=== PATIENT | female | born 2000 | race Caucasian/White ===

== ENCOUNTER 2021-04-21 10:50 | Inpatient (IN) ==
[2021-04-21] MEDS ORDERED: ACETAMINOPHEN 325 MG TABLET PO ONE (11:07)
[2021-04-21] MEDS ORDERED: 0.9 % SODIUM CHLORIDE 1,000 ML IV ONE ×3 (11:07→11:50)
--- NOTE | 2021-04-21 12:06 | Emergency Department Note ---
HPI General Chief complaint: Fever Stated complaint: fever, N/V, kidney infection Time Seen by Provider: 04/21/21 10:55 Source: patient Mode of arrival: ambulatory Limitations: no limitations History of Present Illness HPI Narrative: 20-year-old female with no past medical history presenting with left flank pain and fever. She was seen at urgent care and then in the ED yesterday with similar symptoms. She was diagnosed with pyelonephritis via CT and UA. She was given a total of 5 L of normal saline and 1 dose of Rocephin with improvement in her heart rate. She was discharged home on Keflex. She took 1 dose of Keflex this morning but still felt ill so came back to the ED. She endorses continued left flank pain, dysuria, and fever to 102F. No headache, neck pain, chest pain, shortness of breath, vomiting, or diarrhea. Denies any vaginal bleeding or discharge. She has an IUD in place. Related Data Home Medications Medication Instructions Recorded Confirmed acetaminophen 325 mg capsule 325 mg PO ONCE PRN 04/20/21 04/20/21 (Tylenol) Previous Rx's Medication Instructions Recorded cephalexin 500 mg capsule 500 mg PO QID 14 Days #56 cap 04/20/21 ondansetron 4 mg disintegrating 4 mg PO Q8H PRN #10 tab 04/20/21 tablet Allergies Allergy/AdvReac Type Severity Reaction Status Date / Time No Known Drug Allergies Allergy Verified 04/21/21 10:54 Review of Systems ROS ROS Narrative: Narrative: Constitutional: Reports fever; Denies chills Eyes: Denies vision change ENT ED: Denies ear pain or throat pain Cardiovascular: Denies chest pain or palpitations Respiratory: Denies shortness of breath or cough Gastrointestinal: Reports abdominal pain; Denies nausea or vomiting Genitourinary: Reports dysuria and frequency; Denies hematuria or discharge Musculoskeletal: Reports back pain; Denies joint swelling or joint pain Integumentary: Denies rash or lesions Neurological: Denies headache or weakness Psychiatric: Denies anxiety or depression Endocrine: Denies fatigue or heat or cold intolerance Hematological/Lymphatic: Denies easy bleeding or easy bruising PFS Narrative Patient History Narrative: Narrative: Medical/Surgical/Family History All Active Problems (Updated 04/21/21 @ 13:00 by Chemo Holland MD) Pyelonephritis (Acute) Social History Smoking Status: Never smoker Exam Narrative Narrative: Narrative: General Limitations: no limitations General appearance: Present alert and in no apparent distress Head Head: Present atraumatic and normocephalic Eye Eye: Present normal appearance, PERRL and EOMI; Absent scleral icterus or conjunctival injection ENT ENT: Present normal oropharynx and mucous membranes moist Neck Neck: Present full ROM and trachea midline; Absent lymphadenopathy or thyromegaly Chest Chest: Present symmetric chest wall rise Respiratory Respiratory: Present normal lung sounds bilaterally; Absent respiratory distress, wheezes, stridor, accessory muscle use or prolonged expiratory phase Cardiovascular Cardiovascular: Present normal rhythm and tachycardia; Absent systolic murmur or diastolic murmur Adbominal Abdominal: Present soft; Absent distention, tenderness, guarding, rebound, rigidity, organomegaly or mass Extremities Extremities: Absent pedal edema, pretibial edema or calf tenderness Back Back: Present CVA tenderness (L); Absent CVA tenderness (R) or spinous process tenderness Neurological Neurological: Present alert and oriented X3 Psychiatric Psychiatric: Present normal affect and normal mood Skin Skin: Present warm (WNL) and dry Course Reevaluation(s) Reevaluation #1: Patient continues to be tachycardic despite 1.5 L of normal saline. Will continue to monitor. Time: 12:40 Consultations Consultation #1: Dr. Carolina, hospitalist Time: 12:43 Vital Signs Vital signs: Vital Signs Temperature 102.4 F H 04/21/21 10:51 Pulse Rate 132 H 04/21/21 10:51 Respiratory Rate 22 04/21/21 10:51 Blood Pressure 103/64 04/21/21 10:51 Pulse Oximetry (%) 96 04/21/21 10:51 Temperature 101 F H 04/21/21 11:20 Pulse Rate 115 H 04/21/21 12:34 Respiratory Rate 16 04/21/21 12:30 Blood Pressure 116/71 04/21/21 12:32 Pulse Oximetry (%) 99 04/21/21 12:34 [facility] MDM Narrative Medical decision making narrative: 20-year-old female presenting with left flank pain and pyelonephritis. She has failed outpatient treatment and continues to be tachycardic. 2 L of normal saline ordered today. Her white blood cell count has increased to 32 from 23 yesterday. Lactate is normal. Given her symptoms, findings, and vital signs will admit for further treatment and management. 1 g Rocephin given in the ED. Patient endorsed to Dr. Carolina for admission. Lab Data Lab results reviewed: Yes I reviewed the patient's lab results. Result diagrams: 04/21/21 11:16 04/21/21 11:16 Labs: Lab Results 04/21/21 04/21/21 04/21/21 Range/Units 11:16 11:16 11:16 WBC 32.4 H* (4.5-11.0) K/mcL RBC 3.76 (3.59-5.38) M/mcL Hgb 11.9 (11.2-15.7) g/dL Hct 35.0 (34.1-44.9) % MCV 93.1 (80.0-100.0) fL MCH 31.6 (26.0-34.0) pg MCHC 34.0 (31.0-36.0) g/dL RDW 11.9 (11.5-14.5) % Plt Count 240 (140-440) K/mcL MPV 10.2 (7.4-10.4) fL Neut % (Auto) 87.0 H (38.0-78.0) % Lymph % (Auto) 3.7 L (15.5-49.0) % [place] % (Auto) 9.0 (1.0-12.0) % Eos % (Auto) 0.1 (0.0-7.0) % Baso % (Auto) 0.2 (0.0-2.0) % Lymph # (Auto) 1.20 L (1.50-4.80) K/mcL [place] # (Auto) 2.93 H (0.10-0.90) K/mcL Eos # (Auto) 0.03 (0.00-0.70) K/mcL Baso # (Auto) 0.07 (0.00-0.30) K/mcL Absolute Neutrophils 28.17 H (1.80-8.00) K/mcL VBG Lactic Acid 1.0 (0.5-2.0) mmol/L Sodium 131 L (133-145) mmol/L Potassium 3.3 (3.3-5.1) mmol/L Chloride 97 (96-108) mmol/L Carbon Dioxide 20 L (22-30) mmol/L Anion Gap 14.0 (8.0-16.0) BUN 7 (6-20) mg/dL Creatinine 0.7 (0.6-1.1) mg/dL GFR Calculation 124 Glucose 83 (70-105) mg/dL Calcium 8.3 L (8.6-10.4) mg/dL Total Bilirubin 0.4 (0.1-1.0) mg/dL AST 17 (<32) U/L ALT 16 (<40) U/L Alkaline Phosphatase 81 (39-117) U/L Total Protein 6.1 (5.9-8.4) gm/dL Albumin 3.5 (3.2-5.2) gm/dL Globulin 2.6 (2.2-3.7) gm/dL Albumin/Globulin Ratio 1.3 (1.0-2.3) Pulse Oximetry Data Pulse Ox %: 99 Interpretation: Normal Discharge Plan Patient/Caregiver Discharge Instructions Pt seen by SENIOR ENGINEERING ASSOCIATE/PA only: No Clinical Impression: Pyelonephritis Patient Disposition: Xfer As Inpt ([facility]) Condition: Fair Follow up with: No,PCP [Primary Care Provider] - Prescriptions: No Action acetaminophen [Tylenol] 325 mg capsule 325 mg PO ONCE PRN (Reason: Pain) 0RF cephalexin 500 mg capsule 500 mg PO QID 14 Days Qty: 56 0RF ondansetron 4 mg tablet,disintegrating 4 mg PO Q8H PRN (Reason: nausea and vomiting) Qty: 10 0RF
[2021-04-21 12:22] LABS: Basophils # (Auto) 0.07 K/mcL (0.00-0.30); Basophils % (Auto) 0.2 % (0.0-2.0); Eosinophils # (Auto) 0.03 K/mcL (0.00-0.70); Eosinophils % (Auto) 0.1 % (0.0-7.0); Hemoglobin 11.9 g/dL (11.2-15.7); Lymphocytes % (Auto) 3.7 % (15.5-49.0); Mean Cell Volume 93.1 fL (80.0-100.0); Mean Platelet Volume 10.2 fL (7.4-10.4); Monocytes # (Auto) 2.93 K/mcL (0.10-0.90); Platelet Count 240 K/mcL (140-440); RBC 3.76 M/mcL (3.59-5.38); Red Cell Distribution Width 11.9 % (11.5-14.5); WBC 32.4 K/mcL (4.5-11.0)
[2021-04-21 12:23] LABS: ALT/SGPT 16 U/L (<40); AST/SGOT 17 U/L (<32); Albumin 3.5 gm/dL (3.2-5.2); Albumin/Globulin Ratio 1.3 (1.0-2.3); Alkaline Phosphatase 81 U/L (39-117); Bilirubin,Total 0.4 mg/dL (0.1-1.0); Blood Urea Nitrogen 7 mg/dL (6-20); Calcium 8.3 mg/dL (8.6-10.4); Carbon Dioxide 20 mmol/L (22-30); Chloride 97 mmol/L (96-108); Globulin 2.6 gm/dL (2.2-3.7); Glomerular Filtration Rate 124; Glucose 83 mg/dL (70-105)
[2021-04-21] MEDS ORDERED: cefTRIAXone 1 GM VIAL IV ONE ×2 (12:40→14:30)
--- NOTE | 2021-04-21 13:23 | Internal Med History&Physical ---
HPI History of Present Illness Patient information: Note initiated : 04/21/21 at 1:04 pm Service Date, if different from initiated Date: [] Patient: Radha Rojas a 20 y/o F admitted on for fever, N/V, kidney infection. Chief Complaint: [] History of present illness: Ms. Rojas is a 20 year old F with no significant prior medical history and otherwise healthy who presents to the ER with 2 and half week onset of weakness, malaise, left-sided flank pain, dysuria. Patient was evaluated last week and was diagnosed with constipation and also on at [facility]. She was started on dose of steroid for presumed allergic manifestation. Her symptoms however continue to get worse with increasing frequency/occasional burning. She was evaluated in the ER on 04/20 and was diagnosed with left-sided pyonephritis on CT. She was started on Rocephin and discharged home on oral antibiotic however she presents again today due to feeling poorly. Initial work-up was consistent with white count 32,000. Patient had negative urine screen. Hospital service was consulted after patient was started on crystalloid/antibiotics. At the time of my evaluation patient is alert and oriented. She is accompanied with her sister. She was able to answer most of the question endorse history as above. She denies hematuria, history of renal stone, recurrent UTIs. She denies headache, photophobia, joint pain, rash, she further denies allergies to antibiotics Review of systems 10 point review system was performed and is negative except for ones discussed above PFSH PFSH All Active Problems (Updated 04/21/21 @ 13:00 by Chemo Holland MD) Pyelonephritis (Acute) MEDS/ALLERGIES Home Medications and Allergies Home Medications Medication Instructions Recorded Confirmed Type acetaminophen 325 mg capsule 325 mg PO ONCE PRN 04/20/21 04/20/21 History (Tylenol) cephalexin 500 mg capsule 500 mg PO QID 14 Days #56 cap 04/20/21 Rx ondansetron 4 mg disintegrating 4 mg PO Q8H PRN #10 tab 04/20/21 Rx tablet Allergies Allergy/AdvReac Type Severity Reaction Status Date / Time No Known Drug Allergies Allergy Verified 04/21/21 10:54 EXAM Constitutional Vitals: Temp Pulse Resp BP Pulse Ox 101 F H 111 H 16 113/72 100 04/21/21 11:20 04/21/21 13:01 04/21/21 12:30 04/21/21 13:01 04/21/21 13:01 Alert oriented, minimal anxiety Head normocephalic Oral cavity moist No ear or nose discharge Eye no subconjunctival pallor, movement symmetrical S1-S2 tachycardia 120s Nonlabored breathing Nondistended but tender left flank Lower extremity no cyanosis clubbing or joint swelling Skin no suspicious lesion Psych anxious but no hallucination Neuro normal higher function on limited neuro exam DATA Data Completed and Pending Labs: Labs from last 24 hours 04/21/21 04/21/21 04/21/21 11:16 11:16 11:16 WBC 32.4 H* RBC 3.76 Hgb 11.9 Hct 35.0 MCV 93.1 MCH 31.6 MCHC 34.0 RDW 11.9 Plt Count 240 MPV 10.2 Neut % (Auto) 87.0 H Lymph % (Auto) 3.7 L [place] % (Auto) 9.0 Eos % (Auto) 0.1 Baso % (Auto) 0.2 Lymph # (Auto) 1.20 L [place] # (Auto) 2.93 H Eos # (Auto) 0.03 Baso # (Auto) 0.07 Absolute Neutrophils 28.17 H VBG Lactic Acid 1.0 Sodium 131 L Potassium 3.3 Chloride 97 Carbon Dioxide 20 L Anion Gap 14.0 BUN 7 Creatinine 0.7 GFR Calculation 124 Glucose 83 Calcium 8.3 L Total Bilirubin 0.4 AST 17 ALT 16 Alkaline Phosphatase 81 Total Protein 6.1 Albumin 3.5 Globulin 2.6 Albumin/Globulin Ratio 1.3 A/P Narrative A/P Narrative: * Acute zmsvqkhpfsmnrr-[id number] antibiotic coverage including vancomycin Zosyn since single dose 3 mg/kg gentamicin. Await cultures. Transition to oral antibiotics once cultures available * Systemic inflammatory response syndrome-crystalloids, antibiotics * Pain management on as needed Tylenol Plan * Inpatient admission * Antibiotic coverage * Crystalloids * Nutrition support/pain management Time Spent With Patient Time: Total time spent is greater than 50% in coordination of care (as documented) at patient's floor/unit and/or counseling patient:
[2021-04-21] MEDS ORDERED: ACETAMINOPHEN 650 MG/65 ML BAG IV PRN (14:14)
[2021-04-21] MEDS ORDERED: VANCOMYCIN PER PHARMACY IV SCH (14:14)
[2021-04-21] MEDS ORDERED: PROMETHAZINE 25 MG/ML VIAL IV PRN (14:14)
[2021-04-21] MEDS ORDERED: MAGNESIUM SULFATE 2 GM/50 ML BAG IV PRN (14:14)
[2021-04-21] MEDS ORDERED: ONDANSETRON 4 MG ODT TABLET SL PRN (14:14)
[2021-04-21] MEDS ORDERED: ONDANSETRON 4 MG/2 ML VIAL IV PRN (14:14)
[2021-04-21] MEDS ORDERED: POTASSIUM CHLORIDE 40 MEQ in DEXTROSE 5% IN WATER 500 ML IV PRN (14:14)
[2021-04-21] MEDS ORDERED: ACETAMINOPHEN 325 MG TABLET PO PRN (14:14)
[2021-04-21] MEDS ORDERED: POTASSIUM CHLORIDE 20 MEQ PACKET PO PRN (14:14)
[2021-04-21] MEDS: 0.9 % SODIUM CHLORIDE 10 ML SYRINGE IV SCH ×2 (14:49→20:48)
[2021-04-21] MEDS ORDERED: SODIUM CHLORIDE 0.9% IV ONE (15:00)
[2021-04-21] MEDS ORDERED: GENTAMICIN SULFATE IV ONE (15:00)
[2021-04-21] MEDS: VANCOMYCIN 1,000 MG in 0.9 % SODIUM CHLORIDE 250 ML IV SCH ×2 (15:37→23:44)
[2021-04-21] MEDS: 0.9 % SODIUM CHLORIDE 1,000 ML IV SCH ×3 (15:37→22:12)
[2021-04-21] MEDS: SENNOSIDES/DOCUSATE SODIUM 1 TAB TABLET PO SCH (20:12)
[2021-04-21] MEDS: DOCUSATE SODIUM 100 MG CAPSULE PO SCH (20:12)
[2021-04-22] MEDS: 0.9 % SODIUM CHLORIDE 1,000 ML IV SCH ×4 (04:50→20:45)
[2021-04-22] MEDS: 0.9 % SODIUM CHLORIDE 10 ML SYRINGE IV SCH ×3 (04:50→20:45)
[2021-04-22 06:58] LABS: Basophils # (Auto) 0.04 K/mcL (0.00-0.30); Basophils % (Auto) 0.2 % (0.0-2.0); Eosinophils # (Auto) 0.04 K/mcL (0.00-0.70); Eosinophils % (Auto) 0.2 % (0.0-7.0); Hematocrit 33.8 % (34.1-44.9); Hemoglobin 10.9 g/dL (11.2-15.7); Lymphocytes # (Auto) 1.93 K/mcL (1.50-4.80); Lymphocytes % (Auto) 8.2 % (15.5-49.0); Mean Cell Volume 96.6 fL (80.0-100.0); Mean Corpuscular HGB Conc 32.2 g/dL (31.0-36.0); Mean Platelet Volume 10.4 fL (7.4-10.4); Monocytes # (Auto) 1.62 K/mcL (0.10-0.90); Monocytes % (Auto) 6.9 % (1.0-12.0); Neutrophils % (Auto) 84.5 % (38.0-78.0); Platelet Count 256 K/mcL (140-440); Red Cell Distribution Width 12.4 % (11.5-14.5); WBC 23.6 K/mcL (4.5-11.0)
[2021-04-22 07:46] LABS: ALT/SGPT 14 U/L (<40); AST/SGOT 16 U/L (<32); Albumin 3.1 gm/dL (3.2-5.2); Albumin/Globulin Ratio 1.3 (1.0-2.3); Alkaline Phosphatase 87 U/L (39-117); Bilirubin,Direct < 0.2 mg/dL (0-0.3); Bilirubin,Total 0.2 mg/dL (0.1-1.0); Blood Urea Nitrogen 6 mg/dL (6-20); Calcium 8.4 mg/dL (8.6-10.4); Carbon Dioxide 20 mmol/L (22-30); Chloride 104 mmol/L (96-108); Globulin 2.4 gm/dL (2.2-3.7); Glomerular Filtration Rate 130; Glucose 85 mg/dL (70-105); Lactate Dehydrogenase 202 U/L (135-225); Triglycerides 62 mg/dL (<125); Uric Acid 2.2 mg/dL (2.5-8.0)
[2021-04-22] MEDS: DOCUSATE SODIUM 100 MG CAPSULE PO SCH ×2 (08:56→20:40)
[2021-04-22] MEDS ORDERED: cefTRIAXone 2 GM VIAL ONE (08:57)
[2021-04-22] MEDS ORDERED: cefTRIAXone 2 GM in DEXTROSE 5% IN WATER 50 ML IV SCH (09:00)
[2021-04-22] MEDS: VANCOMYCIN 1,000 MG in 0.9 % SODIUM CHLORIDE 250 ML IV SCH ×2 (09:53→16:59)
[2021-04-22] MEDS ORDERED: FLU VACC QS2021-22(6MOS UP)/PF 60 MCG/0.5 ML SYRINGE IM ONE (10:00)
[2021-04-22] MEDS ORDERED: NEUTRA PHOS 1 PACKET PO PRN (12:23)
--- NOTE | 2021-04-22 12:23 | Internal Med Progress Note ---
SUBJECTIVE Subjective Patient information: Note initiated : 04/22/21 at 12:19 pm Service Date, if different from initiated Date: [] Patient: Radha Rojas 20 y/o F admitted on 04/21/21 for fever, N/V, kidney infection. Chief Complaint: [] Interval history: Ms. Rojas is a 20 year old F with no significant prior medical history and otherwise healthy who presents to the ER with 2 and half week onset of weakness, malaise, left-sided flank pain, dysuria. Patient was evaluated last week and was diagnosed with constipation and also on at [facility]. She was started on dose of steroid for presumed allergic kirill festation. Her symptoms however continue to get worse with increasing frequency/occasional burning. She was evaluated in the ER on 04/20 and was diagnosed with left-sided pyonephritis on CT. She was started on Rocephin and discharged home on oral antibiotic however she presents again today due to feeling poorly. Initial work-up was consistent with white count 32,000. Patient had negative urine screen. Hospital service was consulted after patient was started on crystalloid/antibiotics. At the time of my evaluation patient is alert and oriented. She is accompanied with her sister. She was able to answer most of the question endorse history as above. She denies hematuria, history of renal stone, recurrent UTIs. She denies headache, photophobia, joint pain, rash, she further denies allergies to antibiotics 04/22-patient doing much better since previous day. However emotionally feeling down and tearful. Worried about extent of infection. Discussed clinical finding and overall improvement that is noted on blood work. Improved hemodynamics. White count downtrending to 23,000. Continuing Rocephin/vancomycin. Await urine culture results. Anticipate de-escalation of antibiotics in 24 to 14 hours. Expect 10 to 14 days treatment for pyelonephritis. Denies abdominal pain, shaking chills, sodium improved from 1 31-1 36, phosphorus to start replacement Constitutional Vitals: Vital Signs Temp Pulse Resp BP Pulse Ox 98.7 F 89 15 112/69 100 04/22/21 08:00 04/22/21 08:00 04/22/21 08:00 04/22/21 08:00 04/22/21 08:00 Period Temp Pulse Resp BP Sys/[place] Pulse Ox Last 24 Hr 97.6 F-99.6 F 89-120 15-20 99-116/60-72 96-100 Intake and Output 04/21/21 04/22/21 04/22/21 21:59 05:59 13:59 Intake Total 1315 1750 554.25 Output Total 800 1400 1500 Balance 515 350 -945.75 Weight 60.328 kg appears anxious and tearful Nonlabored breathing No anxiety No lymphedema Intake & Output: Intake & Output 04/21/21 04/22/21 04/22/21 21:59 05:59 13:59 Intake Total 1315 1750 554.25 Output Total 800 1400 1500 Balance 515 350 -945.75 Weight 60.328 kg Intake: IV 1315 1250 554.25 Sodium Chloride 0.9% 1,000 ml @ 1000 1000 125 mls/hr IV .Q8H [facility] Rx#: [id number] Gentamicin Sulfate 170 mg In 254.25 Sodium Chloride 0.9% 250 ml @ 250 mls/hr IV ONCE ONE Rx#: [id number] Vancomycin 1,000 mg In Sodium 250 250 250 Chloride 0.9% 250 ml @ 250 mls/ hr IV Q8H [facility] Rx#:[id number] Rocephin 2 gm In Dextrose 5% in 50 Water 50 ml @ 100 mls/hr IV DAILY [facility] Rx#:[id number] Oral 0 500 Output: Void Amount 800 1400 1500 Other: Urine Appearance Cloudy Clear Clear Urine Color Bright Yellow Bright Yellow Bright Yellow Urine Odor Normal OBJ DATA Labs CBC & Chem 7: 04/22/21 05:23 04/22/21 05:23 Labs: Abnormal Lab Results 04/22/21 04/22/21 04/21/21 05:23 05:23 11:16 WBC 23.6 H RBC 3.50 L Hgb 10.9 L Hct 33.8 L Neut % (Auto) 84.5 H Lymph % (Auto) 8.2 L Lymph # (Auto) [place] # (Auto) 1.62 H Absolute Neutrophils 19.97 H Sodium 131 L Carbon Dioxide 20 L 20 L Uric Acid 2.2 L Calcium 8.4 L 8.3 L Phosphorus 2.0 L Total Protein 5.5 L Albumin 3.1 L 04/21/21 11:16 WBC 32.4 H* RBC Hgb Hct Neut % (Auto) 87.0 H Lymph % (Auto) 3.7 L Lymph # (Auto) 1.20 L [place] # (Auto) 2.93 H Absolute Neutrophils 28.17 H Sodium Carbon Dioxide Uric Acid Calcium Phosphorus Total Protein Albumin Meds: Medications Acetaminophen (Acetaminophen 325 Mg Tablet) 650 mg PO Q4-6HP PRN; Protocol PRN Reason: Per Pain Protocol/Fever > 101 Docusate Sodium (Docusate Sodium 100 Mg Capsule) 100 mg PO BID [facility] Last Admin: 04/22/21 08:56 Dose: 100 mg Documented by: Sodium Chloride (Sodium Chloride 0.9%) 1,000 mls @ 0 mls/hr IV BOLUS [facility] Last Infusion: 04/21/21 18:57 Dose: Infused Documented by: Potassium Chloride 40 meq/ (Dextrose) 520 mls @ 130 mls/hr IV UD PRN PRN Reason: K+ = or < 3.5 Acetaminophen (Ofirmev) 650 mg in 65 mls @ 130 mls/hr IV Q6HP PRN; Protocol PRN Reason: Per Pain Protocol/Fever > 101 Last Infusion: 04/21/21 20:13 Dose: Infused Documented by: Magnesium Sulfate (Magnesium Sulfate) 2 gm in 50 mls @ 50 mls/hr IV UD PRN PRN Reason: MG = or < 1.7 Sodium Chloride (Sodium Chloride 0.9%) 1,000 mls @ 125 mls/hr IV .Q8H [facility] Last Admin: 04/22/21 04:50 Dose: 125 mls/hr Documented by: Ceftriaxone Sodium 2 gm/ (Dextrose) 50 mls @ 100 mls/hr IV DAILY [facility]; Protocol Last Infusion: 04/22/21 09:48 Dose: Infused Documented by: Vancomycin HCl 1,000 mg/ (Sodium Chloride) 250 mls @ 250 mls/hr IV Q8H [facility] Last Infusion: 04/22/21 11:33 Dose: Infused Documented by: Ondansetron HCl (Ondansetron 4 Mg Odt Tablet) 4 mg SL Q4-6HP PRN; Protocol PRN Reason: Nausea And Vomiting Ondansetron HCl (Ondansetron 4 Mg/2 Ml Vial) 4 mg IV Q4-6HP PRN; Protocol PRN Reason: Nausea And Vomiting Last Admin: 04/21/21 16:55 Dose: 4 mg Documented by: Potassium Chloride (Potassium Chloride 20 Meq Packet) 40 meq PO DAILYP PRN PRN Reason: K+ < 3.5 Last Admin: 04/21/21 20:12 Dose: 40 meq Documented by: Promethazine HCl (Promethazine 25 Mg/Ml Vial) 6.25 mg IV Q4-6HP PRN; Protocol PRN Reason: Nausea And Vomiting Senna/Docusate Sodium (Sennosides/Docusate Sodium 1 Tab Tablet) 1 tab PO HS [facility] Last Admin: 04/21/21 20:12 Dose: 1 tab Documented by: Sodium Chloride (0.9 % Sodium Chloride 10 Ml Syringe) 10 ml IV Q8 [facility] Last Admin: 04/22/21 04:50 Dose: Not Given Documented by: Vancomycin HCl (Vancomycin Per Pharmacy) 1 order IV UD [facility]; Protocol A/P Narrative A/P Narrative: * Acute pyelonephritis-responding to broadspectrum antibiotic coverage including Rocephin vancomycin. Await de-escalation based on cultures * Severe sepsis clinically improved on antibiotics/management per guidelines * Hyponatremia improved from 131-1 36 * Low phosphorus start replacement * Pain management on as needed Tylenol Plan * Await de-escalation of antibiotics based on cultures * Phosphorus replacement * Nutrition support * Discharge planning likely in 24 to 48 hours Time Spent With Patient Time: Total time spent is greater than 50% in coordination of care (as documented) at patient's floor/unit and/or counseling patient: QUALITY VTE Deep Vein Thrombosis/Pulmonary Embolism Present on Admission: No
[2021-04-22] MEDS: SENNOSIDES/DOCUSATE SODIUM 1 TAB TABLET PO SCH (20:40)
[2021-04-23] MEDS: VANCOMYCIN 1,000 MG in 0.9 % SODIUM CHLORIDE 250 ML IV SCH ×2 (00:45→10:33)
[2021-04-23] MEDS: 0.9 % SODIUM CHLORIDE 10 ML SYRINGE IV SCH ×2 (03:28→04:31)
[2021-04-23 07:15] LABS: Basophils # (Auto) 0.04 K/mcL (0.00-0.30); Basophils % (Auto) 0.3 % (0.0-2.0); Eosinophils # (Auto) 0.16 K/mcL (0.00-0.70); Eosinophils % (Auto) 1.1 % (0.0-7.0); Hematocrit 34.6 % (34.1-44.9); Hemoglobin 11.4 g/dL (11.2-15.7); Lymphocytes # (Auto) 2.09 K/mcL (1.50-4.80); Lymphocytes % (Auto) 14.3 % (15.5-49.0); Mean Cell Volume 93.5 fL (80.0-100.0); Mean Corpuscular HGB Conc 32.9 g/dL (31.0-36.0); Mean Platelet Volume 10.2 fL (7.4-10.4); Monocytes # (Auto) 0.84 K/mcL (0.10-0.90); Monocytes % (Auto) 5.7 % (1.0-12.0); Neutrophils % (Auto) 78.6 % (38.0-78.0); Platelet Count 317 K/mcL (140-440); Red Cell Distribution Width 12.4 % (11.5-14.5); WBC 14.6 K/mcL (4.5-11.0)
[2021-04-23] MEDS: 0.9 % SODIUM CHLORIDE 1,000 ML IV SCH (08:05)
[2021-04-23 08:06] LABS: ALT/SGPT 17 U/L (<40); AST/SGOT 18 U/L (<32); Albumin 3.1 gm/dL (3.2-5.2); Alkaline Phosphatase 95 U/L (39-117); Bilirubin,Direct < 0.2 mg/dL (0-0.3); Bilirubin,Total 0.2 mg/dL (0.1-1.0); Blood Urea Nitrogen 7 mg/dL (6-20); Calcium 8.6 mg/dL (8.6-10.4); Carbon Dioxide 24 mmol/L (22-30); Chloride 101 mmol/L (96-108); Glomerular Filtration Rate 124; Glucose 87 mg/dL (70-105); Lactate Dehydrogenase 163 U/L (135-225); Triglycerides 74 mg/dL (<125); Uric Acid 2.8 mg/dL (2.5-8.0)
[2021-04-23] MEDS: DOCUSATE SODIUM 100 MG CAPSULE PO SCH (08:06)
--- NOTE | 2021-04-23 08:08 | Discharge Summary ---
Discharge Provider Provider Patient information: Note initiated : 04/23/21 at 8:06 am Service Date, if different from initiated Date: [] Patient: Radha Rojas 20 y/o F admitted on 04/21/21 for fever, N/V, kidney infection. Chief Complaint: [] Date of admission: 04/21/21 13:16 Discharge date: 04/23/21 Primary care physician: PCP No Consults: 04/21/21 Consult to Physician [CONS] Stat Comment: Consulting Provider: Ayad Carolina Reason For Exam: Physician to Consult Discharge Meds Discharge Medications Home Medications acetaminophen 325 mg capsule (Tylenol) 325 mg PO ONCE PRN 04/20/21 [History Confirmed 04/21/21 Last Taken Unknown] cephalexin 500 mg capsule 500 mg PO QID 14 Days #56 cap 04/20/21 [Rx Confirmed 04/21/21 Last Taken 04/21/21 07:00] ondansetron 4 mg disintegrating tablet 4 mg PO Q8H PRN #10 tab 04/20/21 [Rx Confirmed 04/21/21 Last Taken Unknown] levofloxacin 750 mg tablet 750 mg PO DAILY #8 tab 04/23/21 [Rx Last Taken Unknown] COURSE Hospital Course Hospital course: Discharge diagnosis * Acute pyelonephritis-pansensitive E. coli on cultures clinical improvement antibiotic coverage. Continue additional 8 days oral levofloxacin * Severe sepsis clinically resolved * Hyponatremia resolved * Low phosphorus resolved with replacement Brief hospital course Ms. Rojas is a 20 year old F with no significant prior medical history and otherwise healthy who presents to the ER with 2 and half week onset of weakness, malaise, left-sided flank pain, dysuria. Patient was evaluated last week and was diagnosed with constipation and also on at [facility]. She was started on dose of steroid for presumed allergic manifestation. Her symptoms however continue to get worse with increasing frequency/occasional burning. She was evaluated in the ER on 04/20 and was diagnosed with left-sided pyonephritis on CT. She was started on Rocephin and discharged home on oral antibiotic however she presents again today due to feeling poorly. Initial work-up was consistent with white count 32,000. Patient had negative urine screen. Hospital service was consulted after patient was started on crystalloid/antibiotics. At the time of my evaluation patient is alert and oriented. She is accompanied with her sister. She was able to answer most of the question endorse history as above. She denies hematuria, history of renal stone, recurrent UTIs. She denies headache, photophobia, joint pain, rash, she further denies allergies to antibiotics 04/22-patient doing much better since previous day. However emotionally feeling down and tearful. Worried about extent of infection. Discussed clinical finding and overall improvement that is noted on blood work. Improved hemodynamics. White count downtrending to 23,000. Continuing Rocephin/vancomycin. Await urine culture results. Anticipate de-escalation of antibiotics in 24 to 14 hours. Expect 10 to 14 days treatment for pyelonephritis. Denies abdominal pain, shaking chills, sodium improved from 1 31-1 36, phosphorus to start replacement 04/23-patient doing well. No overnight events. White count down to 14,000. Afebrile. Sepsis resolved. Pansensitive E. coli on urine culture. Transition to oral levofloxacin. Discharging home advised to continue antibiotics for additional 8 days. Discharge diagnosis: Acute pyonephritis Time Spent with Patient Time attestation: Total time spent providing and/or coordinating discharge services: EXAM Constitutional Vitals: Temp Pulse Resp BP Pulse Ox 98 F 92 H 20 112/70 98 04/23/21 07:36 04/23/21 03:23 04/23/21 07:36 04/23/21 07:36 04/23/21 07:36 Discharge Data Data Completed and Pending Labs on day of discharge: Labs from last 24 hours 04/23/21 04/23/21 04/23/21 07:57 05:33 05:33 WBC 14.6 H RBC 3.70 Hgb 11.4 Hct 34.6 MCV 93.5 MCH 30.8 MCHC 32.9 RDW 12.4 Plt Count 317 MPV 10.2 Neut % (Auto) 78.6 H Lymph % (Auto) 14.3 L [place] % (Auto) 5.7 Eos % (Auto) 1.1 Baso % (Auto) 0.3 Lymph # (Auto) 2.09 [place] # (Auto) 0.84 Eos # (Auto) 0.16 Baso # (Auto) 0.04 Absolute Neutrophils 11.49 H Sodium 135 Potassium 3.8 Chloride 101 Carbon Dioxide 24 Anion Gap 10.0 BUN 7 Creatinine 0.7 GFR Calculation 124 Glucose 87 Uric Acid 2.8 Calcium 8.6 Phosphorus 4.0 Magnesium 2.0 Total Bilirubin 0.2 Direct Bilirubin < 0.2 GGT 26 AST 18 ALT 17 Alkaline Phosphatase 95 Lactate Dehydrogenase 163 Total Protein 6.1 Albumin 3.1 L Globulin 3.0 Albumin/Globulin Ratio 1.0 Triglycerides 74 Vancomycin Trough Pending 04/22/21 08:11 WBC RBC Hgb Hct MCV MCH MCHC RDW Plt Count MPV Neut % (Auto) Lymph % (Auto) [place] % (Auto) Eos % (Auto) Baso % (Auto) Lymph # (Auto) [place] # (Auto) Eos # (Auto) Baso # (Auto) Absolute Neutrophils Sodium Potassium Chloride Carbon Dioxide Anion Gap BUN Creatinine GFR Calculation Glucose Uric Acid Calcium Phosphorus Magnesium Total Bilirubin Direct Bilirubin GGT AST ALT Alkaline Phosphatase Lactate Dehydrogenase Total Protein Albumin Globulin Albumin/Globulin Ratio Triglycerides Vancomycin Trough 6.8 Preliminary micro results at discharge 04/21/21 11:22 Blood Culture - Preliminary Blood 04/21/21 11:16 Blood Culture - Preliminary Blood Discharge Plan Patient/Caregiver Discharge Instructions Activity: increase activity as tolerated Diet: Regular Diet Prescriptions: New levofloxacin [levofloxacin] 750 MG tablet 750 mg PO DAILY Qty: 8 0RF No Action acetaminophen [Tylenol] 325 mg capsule 325 mg PO ONCE PRN (Reason: Pain) 0RF cephalexin 500 mg capsule 500 mg PO QID 14 Days Qty: 56 0RF ondansetron 4 mg tablet,disintegrating 4 mg PO Q8H PRN (Reason: nausea and vomiting) Qty: 10 0RF Follow Up Plan Follow up with: No,PCP [Primary Care Provider] - Patient Disposition: Home, Self-Care Prognosis: Fair Rehab Potential: Good I certify that the patient requires SNF services: No Overall status at discharge: patient is progressing back to baseline Discharge Orders: Discharge Order (Routine); Ordered 04/23/21 Ordered By: Ayad SNOW VTE Deep Vein Thrombosis/Pulmonary Embolism Present on Admission: No
[2021-04-23] MEDS ORDERED: LEVOFLOXACIN 750 MG TABLET PO SCH (09:00)
[2021-04-23] MEDS ORDERED: FLU VACC QS2021-22(6MOS UP)/PF 60 MCG/0.5 ML SYRINGE IM ONE (10:45)
== END 2021-04-23 11:35 | disposition home or self-care (01) | DRG 872 ==
LOC: ED 10:50 → MEDSUR 13:16
PROVIDERS: ADMIT Internal Medicine; ATTEND Internal Medicine